=== PATIENT | male | born 1950 | race Caucasian/White ===

== ENCOUNTER 2016-11-14 12:14 | Emergency (ER) | payer OTHER ==
[2016-11-14 12:24] VITALS: BP 148/75; BMI 54.7
--- NOTE | 2016-11-14 13:20 | DR.GENAD ---
HPI - PCP Primary Care Physician: TUCKER - HPI Comment HPI Comment: HISTORY BELOW. - Complaint/Symptoms Chief Complaint Doctors Comments: HISTORY PER NURSING NOTE BELOW. Chief Complaint:: PT HAS BEEN HAVING ANXIETY ATTACKS HE WAS ADMITTED INTO [facility] LAST NIGHT FOR CHEST PAIN AND EVERYTING WAS RULED OUT PT WAS GOING HOME THIS MORNING BUT SINGED OUT AMA BEFORE BEING DISCHARGED PT HAD A STRESS TEST DONE IN MAY EVERYTHING CAME BACK OKAY - Nurses notes reviewed Nurses Notes Review: Yes - Source History Provided: Patient - Mode of Arrival Mode of Arrival: Ambulatory - Timing Onset of Chief Complaint: 11/13/16 Came on: Suddenly - Duration Duration: Constant Duration: Days - Severity Severity: Moderate PMH - PMH Past Medical History: Yes Past Medical History: Anxiety, Diabetes, Hypertension Past Medical History Comment: KIDNEY PROBLEMS THYROID, HEAT ATTACK Past Surgical History: Yes Surgical History: Appendectomy, Ortho Surgery, Other Past Surgical History Comment: STENT, RIGHT SHOULDER - Family History History of Family Medical Conditions: Yes Family Medical History: Heart Failure - Social History Does patient currently use any type of tobacco product: No Have you used tobacco products in the last 12 months: No Type of Tobacco Use: None Does any household member use tobacco: No Alcohol Use: None Do you use any recreational Drugs:: No Lives With: Family Lives Where: Home - infectious screening In the last 2 months have you had wt loss of >10#?: NO Have you had fever, night sweats or hemotysis?: No Have you traveled outside the country in the last 6 months?: No Isolation: Standard ROS - Review of Systems Constitutional: No Symptoms Reported. negative: Chills, Fever, Weakness, Fatigue Eyes: No Symptoms Reported. negative: Eye Pain, Discharge ENTM: No Symptoms Reported. negative: Ear Pain, Nose Discharge, Nose Congestion , Throat Pain Respiratoy: No Symptoms Reported, Non-Productive Cough. negative: Productive Cough, Short of Breath, Wheezing, Hemoptysis Cardiovascular: No Symptoms Reported. negative: Chest Pain, Edema Gastrointestinal/Abdominal: Nausea Genitourinary: No Symptoms Reported Neurological: No Symptoms Reported. negative: Headache, Weakness, Dizziness Musculoskeletal: No Symptoms Reported Integumentary: No Symptoms Reported Hematologic/Lymphatic: No Symptoms Reported Endocrine: No Symptoms Reported All Other Systems: Reviewed and Negative PE - Vital Signs Vitals: Temperature 98 F Pulse Rate 67 Respiratory Rate 18 Blood Pressure 148/75 O2 Sat by Pulse Oximetry 100 - General Limitations: No Limitations General Appearance: Alert - Head Head Exam: Normal Inspection - Eyes Eye exam: Normal Appearance - ENT ENT Exam: Normal External Ear Exam External Ear Exam: Normal External Inspection TM/Canal Exam: Bilateral Normal Nose Exam: Normal Nose Exam Mouth Exam: Normal Inspection Throat Exam: Normal Inspection - Neck Neck Exam: Trachea Midline - Chest Chest Inspection: Symmetric Chest Wall Rise - Respiratory Respiratory Exam: Normal Lung Sounds Bilat Respiratory Exam: Bilateral Rhonchi, Lower Rhonchi - Cardiovascular Cardiovascular Exam: Regular Rate, Normal Rhythm, Normal Heart Sounds - Abdominal Exam Abdominal Exam: Normal Bowel Sounds, Soft. negative: Tenderness - Extremities Extremities Exam: Normal Inspection - Back Back Exam: Normal Inspection - Neurologic Neurological Exam: Alert, Oriented X3 - Psychiatric Psychiatric Exam: Anxious - Skin Skin Exam: Normal Color MDM - Additional Information Additional Information Obtained From: Family - Differential Diagnosis Differential Diagnosis: CHEST PAIN Course - Treatment Treatment: SEE ORDERS - Consultation Consultation Comments: DISCUSS PATIENT WITH DR CEBALLOS. HE WILL SEE PATIENT IN HIS OFFICE. - Education/Counseling Education/Counseling: Patient, Family, Education Educated On: Treatment, Diagnosis, Needs for Follow Up - Diagnosis Discharge Problem: Chest pain - Discharge Plan Disposition: 01 HOME, SELF-CARE Condition: Stable Prescriptions: Hydroxyzine Pamoate [Vistaril] 25 - 50 mg PO TID PRN #20 cap PRN Reason: Ranitidine HCl [ZANTAC TAB 150 MG *] 150 mg PO BID #60 tab - Follow ups/Referrals Follow ups/Referrals: DAVONTE CEBALLOS [Primary Care Provider] - 11/16/16 - Instructions Instructions: Chest Pain Observation Additional Instructions: RETURN TO ED IF WORSE.
[2016-11-14] MEDS ORDERED: VISTARIL PO ONE ×2 (15:07→15:10)
[2016-11-14] MEDS ORDERED: ZANTAC PO ONE (15:10)
[2016-11-14] MEDS ORDERED: ZANTAC PO SCH (16:00)
== END 2016-11-14 15:34 | disposition home or self-care (01) ==
LOC: ER 12:34
DX: R07.89 Other chest pain (principal)
CPT/HCPCS: 99282; Q0177